=== PATIENT | male | born 1975 | race Caucasian/White ===

== ENCOUNTER 2018-04-12 21:23 | Observation (INO) | payer OTHER ==
[2018-04-12 22:11] LABS: BASOPHIL % 0.1 % (0.0-0.4); Basophil (Absolute #) 0.02 (0-0.4); Eosinophil % 0.1 % (0.00-5.0); Eosinophil (Absolute #) 0.01 (0-0.5); Granulocyte Absolute (ANC) 15.14 (1.4-6.9); Granulocytes % 89.6 % (36.0-66.0); Hematocrit 45.1 % (42-50); Lymphocyte (Absolute #) 0.77 (1.0-4.6); Lymphocytes % 4.6 % (24.0-44.0); Mean Cell Volume 85.1 fl (78-100); Mean Corpuscular Hemoglobin 30.2 pg (26-32); Mean Corpuscular Hgb Concent. 35.5 g/dl (32-36); Mean Platelet Volume 9.3 fl (6-9.5); Monocyte (Absolute #) 0.94 (0.0-1.3); Monocytes % 5.6 % (0.0-12.0); Platelet Count 383 K/mm3 (150-450); Red Cell Distribution Width 12.7 % (11.5-14.0); White Blood Count 16.9 K/mm3 (4.0-10.5)
[2018-04-12 22:15] LABS: INR 1.18 (0.8-3.0)
[2018-04-12 22:32] LABS: ALBUMIN 5.7 g/dL (3.5-5.0); ANION GAP 22.7 MEQ/L (5-15); BILIRUBIN,TOTAL 1.1 mg/dL (0.2-1.3); Calcium 11.4 mg/dL (8.4-10.2); Creatinine 1 2.69 mg/dL (0.66-1.25); Potassium 4.9 mmol/L (3.5-5.1); Total Protein 8.5 g/dL (6.3-8.2)
[2018-04-12] MEDS ORDERED: Sodium Chloride 0.9% 1000 ML 1,000 ML IV STA ×2 (22:38→23:38)
[2018-04-12] MEDS ORDERED: TORAdol 30 mg Injection IV ONE (22:39)
[2018-04-12 22:41] LABS: NT PRO BNP 74.3 pg/mL (0-450)
[2018-04-12] MEDS ORDERED: Sodium Chloride 0.9% 1000 ML 1,000 ML ONE (22:44)
[2018-04-12] MEDS ORDERED: TORAdol 30 mg Injection ONE (22:44)
--- NOTE | 2018-04-12 22:45 | ERPHSYRPT ---
- History of Present Illness Time Seen by Provider: 04/12/18 21:53 Historian: patient Exam Limitations: no limitations Patient Subjective Stated Complaint: Pt arrives to ER with c/o chest pain that began aroudn 1400 while working outside stating became dizzy prior to pain. pt also c/o cramping in arms and legs. Pt denies any pain at this time. Also had 1 episode of vomiting. Triage Nursing Assessment: see above Physician History: Pt started c/o sudden chest pain, radiating across his chest, with leg and arm cramps since 2 PM, after working outside in the heat. He denies SOB, vomiting, fever, chills, productive cough or other complaints. He is nonsmoker, denies any medical problems, or family history or coronary disease. Timing/Duration: hour(s) (8), intermittent Activities at Onset: none Quality: cramping, sharpness Location: central Chest Pain Radiation: no radiation Severity of Pain-Max: severe Severity of Pain-Current: none Modifying Factors: Improves With: nothing Associated Symptoms: nausea Prior Chest Pain/Cardiac Workup: no prior chest pain Nitro Today/Relief: no nitro taken today Aspirin Treatment Today: no aspirin today Allergies/Adverse Reactions: No Known Drug Allergies Allergy (Unverified 04/12/18 21:49) Home Medications: No Reportable Medications [No Reported Medications] 04/12/18 [History] - Review of Systems Constitutional: No Symptoms Respiratory: No Cough Cardiac: Chest Pain, No Edema Abdominal/Gastrointestinal: Nausea All Other Systems: Reviewed and Negative - Past Medical History Pertinent Past Medical History: No - Past Surgical History Past Surgical History: Yes Gastrointestinal: Appendectomy Other Surgical History: left ear reconstruction - Social History Smoking Status: Never smoker Exposure to second hand smoke: No Drug Use: none Patient Lives Alone: No - Nursing Vital Signs Nursing Vital Signs: Initial Vital Signs Temperature 99.1 F 04/12/18 21:41 Pulse Rate 98 H 04/12/18 21:41 Respiratory Rate 18 04/12/18 21:41 Blood Pressure 138/77 04/12/18 21:41 O2 Sat by Pulse Oximetry 96 04/12/18 21:41 Pain Scale Pain Intensity 0 - Physical Exam General Appearance: no apparent distress Eye Exam: eyes nml inspection Ears, Nose, Throat Exam: normal ENT inspection, pharynx normal, other (left ear is missing due to defect.) Neck Exam: normal inspection, non-tender, supple, No carotid bruit, No JVD Respiratory Exam: normal breath sounds, lungs clear, airway intact, No chest tenderness, No respiratory distress Cardiovascular Exam: regular rate/rhythm, normal heart sounds, normal peripheral pulses, No murmur Gastrointestinal/Abdomen Exam: soft Back Exam: normal inspection, No CVA tenderness Extremity Exam: normal inspection, No calf tenderness, No chelsie's sign, No pedal edema Neurologic Exam: alert, oriented x 3, cooperative, normal mood/affect Skin Exam: normal color, warm, dry, No rash Lymphatic Exam: No adenopathy SpO2 Interpretation: normal SpO2: 96 Oxygen Delivery: Room Air - Course Nursing assessment & vital signs reviewed: Yes EKG Interpreted by Me: RATE (91/min), NORMAL AXIS, NORMAL INTERVALS, Non- specific ST Changes, Other (peak T waves) - Radiology Exams Chest X-ray Interpretation: Interpreted by me, Negative Ordered Tests: Active Orders 24 hr Category Date Time Status Webfocus Developer STAT Care 04/12/18 22:03 Active EKG-ER Only STAT Care 04/12/18 22:02 Active IV Insertion STAT Care 04/12/18 22:02 Active Oxygen-ED Only NASAL CANNULA 2 lpm Care 04/12/18 22:02 Active CHEST 1 VIEW (PORTABLE) Stat Exams 04/12/18 22:03 Taken CBC W DIFF Stat Lab 04/12/18 22:07 Completed CK-Creatinine Phosphokinase Stat Lab 04/12/18 22:07 Completed CMP Stat Lab 04/12/18 22:07 Completed D-DIMER QUANTITATION Stat Lab 04/12/18 22:37 Completed LIPASE Stat Lab 04/12/18 22:46 Completed MAGNESIUM Stat Lab 04/12/18 22:46 Completed NT PRO BNP Stat Lab 04/12/18 22:07 Completed PROTIME WITH INR Stat Lab 04/12/18 22:07 Completed TROPONIN Q3H Lab 04/12/18 22:07 Completed TROPONIN Q3H Lab 04/13/18 01:15 Ordered TROPONIN Q3H Lab 04/13/18 04:15 Ordered TROPONIN Q3H Lab 04/13/18 07:15 Ordered TROPONIN Q3H Lab 04/13/18 10:15 Ordered UA W/RFX UR CULTURE Stat Lab 04/13/18 00:24 Received Urine Triage Profile Stat Lab 04/13/18 00:24 Received Medication Summary Discontinued Medications Generic Name Dose Route Start Last Admin Trade Name Kierra PRN Reason Stop Dose Admin Sodium Chloride 1,000 mls @ 999 mls/hr 04/12/18 22:38 04/13/18 00:48 Sodium Chloride 0.9% 1000 Ml IV 04/12/18 23:38 Infused .Q1H1M STA Infusion Sodium Chloride Confirm 04/12/18 22:44 Sodium Chloride 0.9% 1000 Ml Administered 04/12/18 22:45 Dose 1,000 mls @ ud .ROUTE .STK-MED ONE Sodium Chloride 1,000 mls @ 999 mls/hr 04/12/18 23:38 04/13/18 00:48 Sodium Chloride 0.9% 1000 Ml IV 04/13/18 00:38 Infused .Q1H1M STA Infusion Sodium Chloride Confirm 04/12/18 23:42 Sodium Chloride 0.9% 1000 Ml Administered 04/12/18 23:43 Dose 1,000 mls @ ud .ROUTE .STK-MED ONE Sodium Chloride Confirm 04/13/18 00:08 Sodium Chloride 0.9% 1000 Ml Administered 04/13/18 00:09 Dose 1,000 mls @ ud .ROUTE .STK-MED ONE Ketorolac Tromethamine 30 mg 04/12/18 22:39 04/12/18 22:48 Toradol 30 Mg Injection IV 04/12/18 22:40 30 mg STAT ONE Administration Ketorolac Tromethamine Confirm 04/12/18 22:44 Toradol 30 Mg Injection Administered 04/12/18 22:45 Dose 30 mg .ROUTE .STK-MED ONE Lab/Rad Data: Laboratory Result Diagrams 04/12/18 22:07 04/12/18 22:07 Laboratory Results 04/12/18 04/12/18 04/12/18 Range/Units 22:46 22:37 22:07 WBC (4.0-10.5) K/mm3 RBC (4.1-5.6) M/mm3 Hgb (12.5-18.0) gm/dl Hct (42-50) % MCV (78-100) fl MCH (26-32) pg MCHC (32-36) g/dl RDW (11.5-14.0) % Plt Count (150-450) K/mm3 MPV (6-9.5) fl Gran % (36.0-66.0) % Eos # (Auto) (0-0.5) Absolute Lymphs (auto) (1.0-4.6) Absolute Monos (auto) (0.0-1.3) Lymphocytes % (24.0-44.0) % Monocytes % (0.0-12.0) % Eosinophils % (0.00-5.0) % Basophils % (0.0-0.4) % Absolute Granulocytes (1.4-6.9) Basophils # (0-0.4) PT (8.83-12.87) SECONDS INR (0.8-3.0) D-Dimer < 215 L (215-500) ng/mL Sodium (137-145) mmol/L Potassium (3.5-5.1) mmol/L Chloride (98-107) mmol/L Carbon Dioxide (22-30) mmol/L Anion Gap (5-15) MEQ/L BUN (9-20) mg/dL Creatinine (0.66-1.25) mg/dL Estimated GFR ML/MIN Glucose (74-106) mg/dL Calcium (8.4-10.2) mg/dL Magnesium 2.3 (1.6-2.3) mg/dL Total Bilirubin (0.2-1.3) mg/dL AST (17-59) U/L ALT (0-50) U/L Alkaline Phosphatase (38-126) U/L Creatine Kinase (55-170) U/L Troponin I < 0.012 (0.000-0.034) ng/mL NT-Pro-B Natriuret Pep (0-450) pg/mL Serum Total Protein (6.3-8.2) g/dL Albumin (3.5-5.0) g/dL Lipase 163 (23-300) U/L 04/12/18 04/12/18 04/12/18 Range/Units 22:07 22:07 22:07 WBC 16.9 H (4.0-10.5) K/mm3 RBC 5.30 (4.1-5.6) M/mm3 Hgb 16.0 (12.5-18.0) gm/dl Hct 45.1 (42-50) % MCV 85.1 (78-100) fl MCH 30.2 (26-32) pg MCHC 35.5 (32-36) g/dl RDW 12.7 (11.5-14.0) % Plt Count 383 (150-450) K/mm3 MPV 9.3 (6-9.5) fl Gran % 89.6 H (36.0-66.0) % Eos # (Auto) 0.01 (0-0.5) Absolute Lymphs (auto) 0.77 L (1.0-4.6) Absolute Monos (auto) 0.94 (0.0-1.3) Lymphocytes % 4.6 L (24.0-44.0) % Monocytes % 5.6 (0.0-12.0) % Eosinophils % 0.1 (0.00-5.0) % Basophils % 0.1 (0.0-0.4) % Absolute Granulocytes 15.14 H (1.4-6.9) Basophils # 0.02 (0-0.4) PT 13.7 H (8.83-12.87) SECONDS INR 1.18 (0.8-3.0) D-Dimer (215-500) ng/mL Sodium 137 (137-145) mmol/L Potassium 4.9 (3.5-5.1) mmol/L Chloride 98 (98-107) mmol/L Carbon Dioxide 21 L (22-30) mmol/L Anion Gap 22.7 H (5-15) MEQ/L BUN 40 H (9-20) mg/dL Creatinine 2.69 H (0.66-1.25) mg/dL Estimated GFR 27.5 ML/MIN Glucose 123 H (74-106) mg/dL Calcium 11.4 H (8.4-10.2) mg/dL Magnesium (1.6-2.3) mg/dL Total Bilirubin 1.10 (0.2-1.3) mg/dL AST 28 (17-59) U/L ALT 15 (0-50) U/L Alkaline Phosphatase 56 (38-126) U/L Creatine Kinase 303 H (55-170) U/L Troponin I (0.000-0.034) ng/mL NT-Pro-B Natriuret Pep 74.3 (0-450) pg/mL Serum Total Protein 8.5 H (6.3-8.2) g/dL Albumin 5.7 H (3.5-5.0) g/dL Lipase (23-300) U/L - Progress Progress: improved Air Movement: good Progress Note: 04/13/18 01:02 I discussed our findings with Dr Oakley, she agreed to admit patient for observation. Patient was informed, he agreed. Discussed with .: Tunde Will see patient in: hospital (observation) Counseled pt/family regarding: lab results, diagnosis, need for follow-up, rad results - Departure Time of Disposition: 01:02 Departure Disposition: Observation Clinical Impression: Chest pain Qualifiers: Chest pain type: unspecified Qualified Code(s): R07.9 - Chest pain, unspecified Acute renal failure (ARF) Qualifiers: Acute renal failure type: unspecified Qualified Code(s): N17.9 - Acute kidney failure, unspecified Condition: Stable Critical Care Time: No Referrals: GIOVANY OAKLEY [Primary Care Provider] -
[2018-04-12] MEDS ORDERED: Sodium Chloride 0.9% 1000 ML 0 ML ONE (23:42)
[2018-04-13] MEDS ORDERED: Sodium Chloride 0.9% 1000 ML 1,000 ML ONE (00:08)
[2018-04-13 00:53] LABS: Amphetamine,Urine NEGATIVE (NEGATIVE); Barbiturate,Urine NEGATIVE (NEGATIVE); Cocaine,Urine NEGATIVE (NEGATIVE); Methadone,Urine NEGATIVE (NEGATIVE); Opiate,Urine NEGATIVE (NEGATIVE); PCP,Urine NEGATIVE (NEGATIVE); THC,Urine NEGATIVE (NEGATIVE)
[2018-04-13 00:54] LABS: Benzodiazepine,Urine NEGATIVE (NEGATIVE)
[2018-04-13] MEDS ORDERED: MAALOX ES 30 ML UNIT DOSE PO PRN (01:04)
[2018-04-13] MEDS ORDERED: MILK OF MAGNESIA 30 ML PO PRN (01:04)
[2018-04-13] MEDS ORDERED: Zofran 4 MG/2 ML VIAL IV PRN (01:04)
[2018-04-13] MEDS ORDERED: TYLENOL 325 MG PO PRN (01:04)
[2018-04-13] MEDS ORDERED: Senokot-S Tablet PO PRN (01:04)
[2018-04-13 01:08] LABS: Appearance SLIGHTLY CLOUDY (CLEAR); Bilirubin NEGATIVE (NEGATIVE); Blood TRACE NON-HEM Ery/ul (0-5); Glucose NEGATIVE (NEGATIVE); Ketones MODERATE (NEGATIVE); Leukocyte Esterase NEGATIVE (NEGATIVE); Nitrite NEGATIVE (NEGATIVE); Protein,Urine Dip TRACE (Negative); Specific Gravity 1.025 (1.005-1.025); Urobilinogen NORMAL mg/dL (0-1)
[2018-04-13 01:09] LABS: Bacteria MODERATE /HPF (NEGATIVE); Epithelial Cells MODERATE /HPF (FEW); Mucus MODERATE /HPF (NEGATIVE)
[2018-04-13] MEDS: Sodium Chloride 0.9% 500 ML 500 ML IV SCH ×2 (02:16→05:53)
[2018-04-13 04:52] LABS: Risk Ratio 2.7
[2018-04-13] MEDS ORDERED: Sodium Chloride 0.9% 1000 ML 1,000 ML IV SCH (07:00)
[2018-04-13 07:46] LABS: BASOPHIL % 0.1 % (0.0-0.4); Basophil (Absolute #) 0.01 (0-0.4); Eosinophil (Absolute #) 0 (0-0.5); Granulocyte Absolute (ANC) 7.77 (1.4-6.9); Granulocytes % 71.5 % (36.0-66.0); Hematocrit 39.4 % (42-50); Hemoglobin 13.6 gm/dl (12.5-18.0); Lymphocyte (Absolute #) 1.84 (1.0-4.6); Lymphocytes % 16.9 % (24.0-44.0); Mean Cell Volume 87.4 fl (78-100); Mean Corpuscular Hemoglobin 30.2 pg (26-32); Mean Corpuscular Hgb Concent. 34.5 g/dl (32-36); Mean Platelet Volume 9.9 fl (6-9.5); Monocyte (Absolute #) 1.25 (0.0-1.3); Monocytes % 11.5 % (0.0-12.0); Platelet Count 334 K/mm3 (150-450); Red Blood Count 4.51 M/mm3 (4.1-5.6); Red Cell Distribution Width 12.7 % (11.5-14.0); White Blood Count 10.9 K/mm3 (4.0-10.5)
[2018-04-13 07:47] LABS: ANION GAP 14.8 MEQ/L (5-15); Calcium 9.3 mg/dL (8.4-10.2); Creatinine 1 1.47 mg/dL (0.66-1.25); Potassium 4.4 mmol/L (3.5-5.1)
--- NOTE | 2018-04-13 09:26 | XRAY ---
Indication: Chest pain. Comparison: March 09, 2010. Portable chest again demonstrates normal heart and lungs. Bony thorax intact with stable right 7th rib deformity and minimal scoliosis. No new/acute findings.
--- NOTE | 2018-04-13 09:39 | HP ---
HISTORY OF PRESENT ILLNESS: This is a 42 year-old patient of mine who presented to the emergency department stating that he has cramping from head to toe and having some chest pain more on the right side that radiates across to the left side as well. He reports he also did not feel good the day before that. 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 The emergency room doctor felt like he was dehydrated. The patient states it was worse yesterday afternoon around 1400 hours. He denies any chest pain now after getting some IV fluids. He states the muscle cramping is gone as well. Yesterday, he reports he had nausea and vomiting but not today. He denies any dyspnea. No diarrhea. No fever. No abdominal pain. REVIEW OF SYSTEMS: As noted in the history of present illness. 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 PAST SURGICAL HISTORY: Ear surgery. Appendectomy. MEDICATIONS: None. ALLERGIES: NKDA. SOCIAL HISTORY: He lives with his mother and father. He denies any tobacco, alcohol or drug use. FAMILY HISTORY: His mother and father are living and healthy. PHYSICAL EXAMINATION: VITAL SIGNS: Temperature current 98.1F, temperature max 99.1F, heart rate 71 to 98 currently 71, respiratory rate 16 to 18, blood pressure 105 to 149 over 57 to 77 currently 105/59, weight 70 kg. Oxygen saturation 96 to 98% on room air. GENERAL: The patient is lying down, a pleasant talkative man in no acute distress. CVS: He has a regular rate and rhythm. No murmurs, gallops or rubs. CHEST: Clear to auscultation bilaterally. No crackles or wheezes. No tenderness over his sternum. ABDOMEN: Soft, nontender, nondistended with normal bowel sounds. EXTREMITIES: No clubbing, cyanosis or edema. He has +2 radial pulses bilaterally. SKIN: Warm, dry and intact. LABORATORY DATA AND TESTS: On admission his creatinine was 2.6, repeat creatinine 1.4. At baseline his creatinine is normal based on chemistry from two years ago. White blood cell count 16,900 and repeat 10,900. Glucose 116. Fasting lipid profile was within normal limits.UA revealed 2 to 5 white blood cells, moderate bacteria. Urine tox is negative. ASSESSMENT AND PLAN: 1) ACUTE RENAL FAILURE DUE TO DEHYDRATION: He has been placed on normal saline at 150 ml/hour, will plan to continue with this. He reports good urine output. He may be able to be discharged later today if he continues to have good oral intake and good urine output with close follow up. 2) CHEST PAIN: He is currently on a chest pain pathway. So far his troponins have been negative. His EKG is normal sinus rhythm with no ST or T-wave changes, heart rate 70. 3) MUSCLE CRAMPING: This has resolved with IV fluids most likely due to dehydration.
[2018-04-13] MEDS ORDERED: Pepcid 20 MG PO SCH (10:00)
[2018-04-13 11:32] VITALS: BP 118/64; PULSE 78; O2SAT 99
== END 2018-04-13 12:56 | disposition home or self-care (01) ==
LOC: ED 21:23 → MED SURG 04-13 01:29
PROVIDERS: ADMIT Internal Medicine; ATTEND Internal Medicine
DX: N17.9 Acute kidney failure, unspecified (principal); E86.0 Dehydration; R07.9 Chest pain, unspecified; R25.2 Cramp and spasm
CPT/HCPCS: 36000; 36415; 71045; 80048; 80053; 80061; 80307; 81000; 82550; 83690; 83721; 83735; 83880; 84484; 85025; 85379; 85610; 87086; 93005; 93041; 93268; 96360; 96361; 96374; 99285; J1885; A9270-GY; G0378

== ENCOUNTER 2023-10-27 15:44 | Emergency (ER) | payer OTHER ==
[2023-10-27 18:15] VITALS: RESP 18; TEMP 97.8
[2023-10-27] MEDS ORDERED: TORAdol 30 mg Injection IM ONE (19:29)
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
[2023-10-27] MEDS ORDERED: TORAdol 30 mg Injection ONE (19:35)
[2023-10-27] MEDS ORDERED: BACIGUENT PACKET TP ONE (19:46)
[2023-10-27] MEDS ORDERED: BACIGUENT PACKET ONE (19:49)
[2023-10-27 20:03] VITALS: BP 147/99; PULSE 70
[2023-10-27 20:11] VITALS: O2SAT 97
== END 2023-10-27 20:25 | disposition home or self-care (01) ==
LOC: ED 15:44
DX: T23.262A Burn of second degree of back of left hand, initial encounter (principal); T23.222A Burn of second degree of single left finger (nail) except thumb, initial encounter; T23.261A Burn of second degree of back of right hand, initial encounter; T31.0 Burns involving less than 10% of body surface; X02.8XXA Other exposure to controlled fire in building or structure, initial encounter; Z28.310 Unvaccinated for COVID-19
CPT/HCPCS: 96372; 99283; J1885; A9270-GY

== ENCOUNTER 2023-11-03 05:43 | Day surgery (SDC) | payer OTHER ==
[2023-11-03 06:26] VITALS: RESP 16
[2023-11-03] MEDS: Lactated Ringers 1,000 ML IV SCH (06:48)
[2023-11-03] MEDS ORDERED: Xylocaine-Mpf 2% 5 Ml Vial ONE (08:11)
[2023-11-03] MEDS ORDERED: DIPRIVAN 200 MG/20 ML IV ONE ×2 (08:11→08:21)
[2023-11-03] MEDS ORDERED: Versed 2 MG/2 ML Injection ONE (08:11)
--- NOTE | 2023-11-03 09:42 | PCM.DCORD ---
- Discharge Disposition: Home, Self-Care Condition: Stable Prescriptions: New PANTOPRAZOLE 40 mg Tablet [Protonix 40MG Tablet] 40 mg PO QPM #30 tab Follow up with: WALT NICHOLAS DO [Primary Care Provider] -
[2023-11-03 09:53] VITALS: BP 118/60; PULSE 56; TEMP 97.3; O2SAT 99
--- NOTE | 2023-11-03 12:53 | OP ---
SURGERY DATE/TIME: 11/03/202395 PREOPERATIVE DIAGNOSES: 1) Gastroesophageal reflux disease. 2) Screening colonoscopy. POSTOPERATIVE DIAGNOSES: 1) Distal esophagitis. 2) Ascending colon polyp. PROCEDURES: 1) EGD. 2) Colonoscopy. SURGEON: Rik Salas M.D. ANESTHESIA: MAC by Jeronimo Hernandez CRNA. ESTIMATED BLOOD LOSS: Minimal. SPECIMENS: Two cold forceps biopsies taken from the gastroesophageal junction and hot forceps polypectomy from ascending colon polyp. DESCRIPTION OF PROCEDURE: After informed written consent was obtained, the patient was taken to the endoscopy suite. Bite block is inserted. Anesthesia was titrated to desired level of consciousness. Under direct visualization the esophagus was easily traversed. Upon entering the stomach, there is normal rugated gastric mucosa. There are no obvious lesions or defects. The pylorus had a normal appearance. No evidence of inflammation or ulceration at that level. First and second portions of the duodenum were within normal limits after traversing the pylorus. Upon withdrawal again mucosal structures appeared normal. The gastroesophageal junction was inspected closely upon withdrawal. There was moderate esophagitis-type changes with some mild bleeding. Two cold forceps biopsies were taken from this level and sent for pathology testing. The remainder of the esophagus had a normal appearance. The scope was removed and the scopes were switched. Digital rectal exam showed normal sphincter tone and no internal lesions. The scope was inserted in the rectum and sequentially the entire colonic mucosa was traversed. The level of the cecum was directly visualized and confirmed. Upon withdrawal there was a small sessile polyp in the ascending colon which was grasped with forceps cauterized and removed in its entirety. The remainder of the exam was within normal limits. Prior to withdrawal retroflexion showed no internal lesions. The scope was removed. The patient was transferred to the recovery room in good condition. I have advised the patient to start proton pump inhibitor and a prescription will be sent in. He will follow up in a week for pathology results.
== END 2023-11-03 09:50 | disposition home or self-care (01) ==
LOC: SDC 05:43
PROVIDERS: ATTEND Family Medicine
DX: Z12.11 Encounter for screening for malignant neoplasm of colon (principal); K21.9 Gastro-esophageal reflux disease without esophagitis; K20.90 Esophagitis, unspecified without bleeding; K63.5 Polyp of colon
CPT/HCPCS: J2250; J2704